=== PATIENT | male | born 1970 | race Caucasian/White ===

== ENCOUNTER 2017-01-21 22:35 | Emergency (ER) ==
[2017-01-21 22:40] VITALS: BP 148/90; TEMP 97.5; BMI 23.6
[2017-01-21] MEDS ORDERED: TETRACAINE 0.5% OPTH SOL OP STA (23:17)
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
[2017-01-21] MEDS ORDERED: EYE-STREAM OP STA (23:52)
[2017-01-21] MEDS ORDERED: FLUORETS OP STA (23:52)
[2017-01-22] MEDS ORDERED: TETRACAINE 0.5% UNIT-DOSE OP ONE (00:14)
[2017-01-22] MEDS ORDERED: TOBREX 0.3% OP ONE (00:17)
[2017-01-22] MEDS ORDERED: TOBREX 0.3% OP STA (00:18)
== END 2017-01-22 00:30 | disposition home or self-care (01) ==
LOC: ED 22:35
DX: S05.02XA Injury of conjunctiva and corneal abrasion without foreign body, left eye, initial encounter (principal)
CPT/HCPCS: 99283

== ENCOUNTER 2018-01-19 12:37 | Outpatient (CLI) | END 2018-01-19 12:38 | disposition home or self-care (01) | LOC: FCC-LAB 12:37 | PROVIDERS: ATTEND Family Medicine | DX: F15.10 Other stimulant abuse, uncomplicated (principal); F12.10 Cannabis abuse, uncomplicated | CPT/HCPCS: 80306 ==

== ENCOUNTER 2018-07-07 23:30 | Emergency (ER) ==
[2018-07-07 23:33] VITALS: BP 148/78; TEMP 97.8; BMI 24.3
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
== END 2018-07-08 04:10 | disposition home or self-care (01) ==
LOC: ED 23:30
DX: R45.851 Suicidal ideations (principal); Z72.0 Tobacco use
CPT/HCPCS: 36415; 80053; 80306; 80307; 81001; 85025; 93005; 93010; 99285